=== PATIENT | male | born 1955 | race Caucasian/White ===

== ENCOUNTER 2018-07-28 10:26 | Day surgery (SDC) | payer BC ==
[~2018-07-28] VITALS: Ht 167.6 cm; Wt 63.5 kg
[~2018-07-28 10:26] MED LIST: LINZ145C PO; MULTCAP PO; OMEP20TA PO; PRESCAP PO
[2018-07-28] MEDS ORDERED: PROPOFOL 500 MG/50 ML VIAL As Ordered ONE (12:44)
--- NOTE | 2018-07-28 13:21 | ROOR ---
Patient Name: Dash Miller Procedure Date: 07/28/2018 1:09 PM Date of : 1955 Age: 63 Room: [facility] Gender: Male Note Status: Finalized Procedure: Upper GI endoscopy Indications: Heartburn Providers: Lee SAMSON MD Referring MD: YANELY HOLLIDAY MD Requesting Provider: Medicines: Monitored Anesthesia Care Complications: No immediate complications. Procedure: Pre-Anesthesia Assessment: - The heart rate, respiratory rate, oxygen saturations, blood pressure, adequacy of pulmonary ventilation, and response to care were monitored throughout the procedure. The Endoscope was introduced through the mouth, and advanced to the second part of duodenum. The upper GI endoscopy was accomplished without difficulty. The patient tolerated the procedure well. Findings: The esophagus was normal. The stomach was normal. (large volume) The examined duodenum was normal. Impression: - Normal esophagus. - Normal stomach. - Normal examined duodenum. - No specimens collected. Recommendation: - Observe patient's clinical course. - Follow an antireflux regimen. - Return to referring physician as previously scheduled. Lee Samson MD Lee SAMSON MD 07/28/2018 1:20:57 PM Electronically signed by Lee SAMSNO MD Number of Addenda: 0 Note Initiated On: 07/28/2018 1:09 PM Estimated Blood Loss: Estimated blood loss: none.
[2018-07-28] MEDS ORDERED: LIDOCAINE 2% INJ 100 MG/5 ML SDV (FOR ANES.) As Ordered ONE (13:29)
--- NOTE | 2018-07-28 13:39 | ROOR ---
Patient Name: Dash Miller Procedure Date: 07/28/2018 1:10 PM Date of : 1955 Age: 63 Room: [facility] Gender: Male Note Status: Finalized Procedure: Colonoscopy Indications: High risk colon cancer surveillance: Personal history of colonic polyps, Last colonoscopy: April 2013 Providers: Lee SAMSON MD Referring MD: YANELY HOLLIDAY MD Requesting Provider: Medicines: Monitored Anesthesia Care Complications: No immediate complications. Procedure: Pre-Anesthesia Assessment: - The heart rate, respiratory rate, oxygen saturations, blood pressure, adequacy of pulmonary ventilation, and response to care were monitored throughout the procedure. The Colonoscope was introduced through the anus and advanced to the terminal ileum, with identification of the appendiceal orifice and IC valve. The colonoscopy was performed without difficulty. The patient tolerated the procedure well. The quality of the bowel preparation was good. Findings: The perianal and digital rectal examinations were normal. A 5 mm polyp was found in the cecum. The polyp was sessile. The polyp was removed with a cold snare. Resection and retrieval were complete. Internal hemorrhoids were found during retroflexion. The hemorrhoids were moderate. A diffuse area of mildly erythematous mucosa was found in the rectum and in the sigmoid colon. This was biopsied with a cold forceps for histology. Impression: - One 5 mm polyp in the cecum, removed with a cold snare. Resected and retrieved. - Internal hemorrhoids. - Erythematous mucosa in the rectum and in the sigmoid colon. Biopsied. - The exam was otherwise normal to the cecum. Recommendation: - Repeat colonoscopy in 5 years for surveillance. - Telephone endoscopist for pathology results in 2 weeks. - Return to referring physician as previously scheduled. Lee Samson MD Lee SAMSON MD 07/28/2018 1:38:36 PM Electronically signed by Lee SAMSON MD Number of Addenda: 0 Note Initiated On: 07/28/2018 1:10 PM Estimated Blood Loss: Estimated blood loss: none.
[2018-07-28 14:10] VITALS: BP 122/69
[2018-07-29] MEDS ORDERED: NS 1,000 ML IV ONE (06:00)
== END 2018-07-28 14:16 | disposition home or self-care (01) ==
LOC: M OPP 10:26
PROVIDERS: ATTEND Internal Medicine Gastroenterology
DX: D12.0 Benign neoplasm of cecum (principal); K64.8 Other hemorrhoids; R12 Heartburn; K63.89 Other specified diseases of intestine; Z86.010 Personal history of colon polyps

== ENCOUNTER 2022-10-05 12:09 | Day surgery (SDC) | payer MEDICARE, BC ==
[~2022-10-05] VITALS: Ht 167.6 cm; Wt 64.6 kg
[~2022-10-05 12:09] MED LIST changes: +FLOM0.4C39 PO; +OMEP-358 PO; -OMEP20TA PO; +OMEP40CA5 PO
[2022-10-05] MEDS ORDERED: fentaNYL 100 MCG/2 ML INJECTION As Ordered ONE (13:14)
[2022-10-05] MEDS ORDERED: propofoL 200 MG/20 ML VIAL As Ordered ONE (13:14)
[2022-10-05] MEDS ORDERED: LIDOCAINE 2% 100MG/5ML SDV (FOR ANES.) As Ordered ONE (13:14)
[2022-10-05 15:55] VITALS: BP 124/66; O2SAT 100
== END 2022-10-05 16:04 | disposition home or self-care (01) ==
LOC: M OPP 12:09
PROVIDERS: ATTEND Internal Medicine Gastroenterology
DX: K29.70 Gastritis, unspecified, without bleeding (principal); Z79.899 Other long term (current) drug therapy; Z88.2 Allergy status to sulfonamides; Z88.8 Allergy status to other drugs, medicaments and biological substances
CPT/HCPCS: 43239; 88305; J3010

== ENCOUNTER 2023-10-29 08:48 | Day surgery (SDC) | payer MEDICARE, BC ==
[~2023-10-29] VITALS: Ht 167.6 cm; Wt 60.5 kg
[~2023-10-29 08:48] MED LIST changes: +PRES10CA2 PO
[2023-10-29] MEDS: NS 1,000 ML IV ONE (09:24)
[2023-10-29] MEDS ORDERED: fentaNYL 100 MCG/2 ML INJECTION As Ordered ONE (10:14)
[2023-10-29] MEDS ORDERED: LIDOCAINE 2% 100MG/5ML SDV (FOR ANES.) As Ordered ONE (10:15)
[2023-10-29] MEDS ORDERED: propofoL 200 MG/20 ML VIAL As Ordered ONE (10:15)
[2023-10-29 10:51] VITALS: TEMP 97.2
[2023-10-29 11:11] VITALS: BP 108/56; O2SAT 100
== END 2023-10-29 11:18 | disposition home or self-care (01) ==
LOC: M OPP 08:48
PROVIDERS: ATTEND Internal Medicine Gastroenterology
DX: K64.8 Other hemorrhoids (principal); Q43.8 Other specified congenital malformations of intestine; R19.4 Change in bowel habit; R10.84 Generalized abdominal pain; R10.13 Epigastric pain; R11.0 Nausea; Z79.899 Other long term (current) drug therapy; Z88.2 Allergy status to sulfonamides
CPT/HCPCS: 43235; 45378; J3010

== ENCOUNTER 2025-03-09 09:36 | Day surgery (SDC) | payer MEDICARE, BC ==
[~2025-03-09] VITALS: Ht 165.1 cm; Wt 56.7 kg
[~2025-03-09 09:36] MED LIST changes: -FLOM0.4C39 PO; +TAMS-18 PO
[2025-03-09] MEDS ORDERED: dexAMETHasone 4 MG/ML 1 ML VIAL As Ordered ONE (12:37)
[2025-03-09] MEDS ORDERED: MIDAZOLAM INJ 2 MG/2 ML VIAL As Ordered ONE (12:37)
[2025-03-09] MEDS ORDERED: ONDANSETRON 4MG/2ML VIAL As Ordered ONE (12:37)
[2025-03-09] MEDS ORDERED: ACETAMINOPHEN 1000MG/100ML IV BAG As Ordered ONE (12:38)
[2025-03-09] MEDS ORDERED: LIDOCAINE 2% 100 MG/5 ML SDV (FOR ANES.) As Ordered ONE (12:38)
[2025-03-09] MEDS ORDERED: KETOROLAC 30 MG/ML 1 ML VIAL As Ordered ONE (13:42)
[2025-03-09] MEDS ORDERED: ONDANSETRON 4MG/2ML VIAL IV PRN (13:45)
[2025-03-09] MEDS ORDERED: LR 1,000 ML IV SCH (13:45)
[2025-03-09] MEDS: CIPRODEX OTIC SUSP 7.5 ML As Ordered ONE (14:00)
[2025-03-09] MEDS: OXYMETAZOLINE 0.05% NASAL SPRAY As Ordered ONE (14:00)
[2025-03-09] MEDS: HYDROMORPHONE HCL 0.5 MG/0.5 ML SYRINGE IV PRN (14:37)
[2025-03-09 15:05] VITALS: BP 142/63; TEMP 97.2; O2SAT 100
== END 2025-03-09 15:21 | disposition home or self-care (01) ==
LOC: M SDC 09:36
PROVIDERS: ATTEND Otolaryngology
DX: H66.93 Otitis media, unspecified, bilateral (principal); N40.0 Benign prostatic hyperplasia without lower urinary tract symptoms; K58.9 Irritable bowel syndrome, unspecified; Z87.19 Personal history of other diseases of the digestive system; Z90.49 Acquired absence of other specified parts of digestive tract
CPT/HCPCS: 69436; J0131; J1100; J1171; J1885; J2250; J2405; J3010